=== PATIENT | female | born 1970 | race Two or more races ===

== ENCOUNTER 2022-07-25 12:00 | Emergency (ER) | payer MEDICAID, OTHER ==
[~2022-07-25] VITALS: Ht 172.7 cm; Wt 100.0 kg
[2022-07-25 12:39] LABS: Basophils # (auto) 0 10 ^3/uL (0-0.2); Basophils % (auto) 0.3 % (0.0-2.0); Eosinophils # (auto) 0.1 10 ^3/uL (0-0.8); Eosinophils % (auto) 0.7 % (0.0-7.0); Hematocrit 48.8 % (36.0-46.0); Hemoglobin 16.8 g/dL (12.2-16.2); Lymphocytes # (auto) 3.5 10 ^3/uL (0.4-5.4); Lymphocytes % (auto) 41.2 % (10.0-50.0); Mean Corpuscular Hemoglobin 31.8 pg (28.0-32.0); Mean Corpuscular Hgb Conc. 34.4 g/dL (32.0-36.0); Mean Corpuscular Volume 92.5 fL (80.0-100.0); Monocytes # (auto) 0.5 10 ^3/uL (0-1.3); Monocytes % (auto) 5.4 % (0.0-12.0); Neutrophils # (auto) 4.5 10 ^3/uL (1.6-8.6); Neutrophils % (auto) 52.4 % (37.0-80.0); Nucleated Red Blood Cells % 0.2 %; Red Blood Cells 5.28 10^6/uL (4.0-5.20); Red Cell Distribution Width 13.2 % (11.8-14.3); White Blood Cell 8.5 10^3/uL (4.4-10.8)
[2022-07-25 12:58] LABS: Albumin 4.4 g/dL (3.4-5.0); Calcium 9.6 mg/dL (8.5-10.1); Magnesium 2.6 mg/dL (1.6-2.6); Potassium 4.1 mmol/L (3.5-5.1)
[2022-07-25 13:01] LABS: BUN/Creatinine Ratio 21.8 (10.0-20.0); Bilirubin, Total 0.5 mg/dL (0.2-1.0)
[2022-07-25 13:06] LABS: INR 0.93 (0.9-1.15); Partial Thromboplastin Time 28.2 sec (24.6-33.4)
[2022-07-25 15:34] VITALS: BP 127/61
[2022-07-25 15:35] LABS: Urine Bacteria MOD /hpf (None Seen); Urine Blood Negative /uL (Negative); Urine Specific Gravity 1.026 (1.001-1.035); Urine WBC 1 /hpf (0 - 5)
== END 2022-07-25 15:54 | disposition home or self-care (01) ==
LOC: ER 12:00
DX: R07.89 Other chest pain (principal); Z88.0 Allergy status to penicillin; Z79.899 Other long term (current) drug therapy
CPT/HCPCS: 36415; 71046; 80053; 81001; 83735; 83880; 84484; 85025; 85610; 85730; 93005